=== PATIENT | male | born 1995 | race Caucasian/White ===

== ENCOUNTER 2020-12-08 11:02 | Emergency (ER) | payer SELFPAY ==
[~2020-12-08] VITALS: Ht 175.3 cm; Wt 95.0 kg
[2020-12-08 12:30] LABS: BASOPHILS % (AUTO) 1 % (0-1); EOSINOPHILS % (AUTO) 6 % (1-7); LYMPHOCYTES % (AUTO) 24 % (22-44); MEAN CORPUSCULAR HEMOGLOBIN 31.4 pg (27.5-34.5); MEAN CORPUSCULAR HGB CONC 33.8 g/dL (33.2-36.2); MEAN PLATELET VOLUME 7.9 fL (7.4-10.4); MONOCYTES % (AUTO) 6 % (2-9); NEUTROPHILS % (AUTO) 64 % (42-75); PLATELET COUNT 284 x10^3/uL (130-400); RED BLOOD COUNT 4.99 x10^6/uL (4.38-5.82); RED CELL DISTRIBUTION WIDTH 13.6 % (9.4-14.8)
[2020-12-08 12:37] LABS: ALANINE AMINOTRANSFERASE 111 U/L (12-78); ANION GAP 6 mmol/L (5-15); CALCIUM 9.3 mg/dL (8.5-10.1); CHLORIDE 108 mmol/L (98-107); CREATININE 0.91 mg/dL (0.7-1.3)
[2020-12-08 12:42] LABS: ALKALINE PHOSPHATASE 114 U/L (45-117); BILIRUBIN,TOTAL 0.3 mg/dL (0.2-1.0); TOTAL PROTEIN 7.5 g/dL (6.4-8.2); TROPONIN I < 0.015 ng/mL (0.000-0.045)
--- NOTE | 2020-12-08 14:20 | NUR ---
ASSUMED CARE OF PATIENT. PATIENT SEEN IN TRIAGE BY DR CASTRO. VS STABLE. CALL LIGHT IN PLACE. WILL CONTINUE TO MONITOR.
[2020-12-08] MEDS ORDERED: METHOCARBAMOL 500 MG TABLET ONE (14:22)
[2020-12-08] MEDS ORDERED: HYDROmorphone 2 MG/ML, 1ML ONE (14:23)
[2020-12-08] MEDS ORDERED: METHOCARBAMOL 500 MG TABLET PO ONE (14:30)
[2020-12-08] MEDS ORDERED: HYDROmorphone 1 MG/ML, 1ML INJ IM ONE (14:30)
[2020-12-08 15:14] VITALS: BP 120/73
--- NOTE | 2020-12-08 15:17 | NUR ---
PT'S PHONE NUMER: [phone]
== END 2020-12-08 15:23 | disposition home or self-care (01) ==
LOC: ED 15:15
DX: R07.89 Other chest pain (principal); Z20.822 Contact with and (suspected) exposure to COVID-19; R05 Cough; R94.31 Abnormal electrocardiogram [ECG] [EKG]; I10 Essential (primary) hypertension; F17.200 Nicotine dependence, unspecified, uncomplicated
CPT/HCPCS: 71045; 80053; 84484; 85025; 93005; 96372; 99285; J1170; U0003; U0005